=== PATIENT | male | born 1970 | race African-American/Black ===

== ENCOUNTER → 2021-06-14 | Emergency (ER) | payer OTHER ==
[~2021-06-14] MED LIST: morphine CARPU-JECT 2 MG/1 ML DISP.SYRIN IVPUSH ONE
[2021-06-14 19:19] VITALS: BMI 24.4
[2021-06-14 20:57] LABS: BASO % 0.6 % (0-2.0); EOS % 2.3 % (0-4.5); HEMATOCRIT 41.7 % (35.4-49); HEMOGLOBIN 13.9 GM/dL (11.7-16.9); LYMPH % 32.8 % (8-40); MCH 29.7 pg (25.7-33.7); MCHC 33.3 g/dl (32.0-35.9); MEAN CELL VOLUME 89.2 fl (80-96); MEAN PLT VOLUME 10.4 fl (7.5-11.1); MONO % 10.1 % (3.8-10.2); NEUT % 54.2 % (42.8-82.8); PLATELET COUNT 202 10^3/uL (134-434); RBC 4.68 M/mm3 (4.00-5.60); RDW 12.6 % (11.9-15.9); WHITE BLOOD COUNT 6.3 K/mm3 (4.0-10.0)
[2021-06-14 21:03] LABS: INR 1.08 (0.83-1.09); PROTHROMBIN TIME (PATIENT) 12.4 SEC (9.7-13.0)
[2021-06-14 21:06] LABS: ACTIVATED PTT 30.5 SECONDS (25.2-36.5)
[2021-06-14 21:20] LABS: ALBUMIN 4.1 g/dl (3.4-5.0); CALCIUM 9.3 mg/dL (8.5-10.1)
[2021-06-14 21:21] LABS: BLOOD UREA NITROGEN 11.1 mg/dL (7-18)
[2021-06-14 21:24] LABS: BILIRUBIN,TOTAL 1.1 mg/dL (0.2-1); CREATININE 1.2 mg/dL (0.55-1.3); TOT PROT 7.3 g/dl (6.4-8.2)
[2021-06-15 01:22] VITALS: BP 132/123; PULSE 73; TEMP 98.8
== END ==
LOC: JER 19:09
PROC: 3E033NZ Introduction of Analgesics, Hypnotics, Sedatives into Peripheral Vein, Percutaneous Approach (ICD-10-PCS; principal; 2021-06-14)
PROC: 3E033NZ Introduction of Analgesics, Hypnotics, Sedatives into Peripheral Vein, Percutaneous Approach (ICD-10-PCS; 2021-06-14)
DX: Z18.10 Retained metal fragments, unspecified (principal)
CPT/HCPCS: 36415; 71260-TC; 73030-TC-RT-FY; 73060-TC-RT-FY; 80053; 85025; 85610; 85730; 86850; 86900; 86901; 93005; 93010; 99291; 99292; C9803; Q9967; U0003; U0005